=== PATIENT | female | born 1960 | race Caucasian/White ===

== ENCOUNTER → 2016-08-11 | Outpatient (CLI) | payer BC ==
[~2016-08-11] MED LIST: HORMONE REPLACEMENT; MULT-806 PO; SERT25TA PO
== END ==
LOC: WC.BC 10:03
DX: Z12.31 Encounter for screening mammogram for malignant neoplasm of breast (principal); N64.89 Other specified disorders of breast; Z98.82 Breast implant status
CPT/HCPCS: 77063; G0202

== ENCOUNTER → 2016-08-12 | Outpatient (CLI) | payer BC | LOC: IMA 15:07 | PROVIDERS: ATTEND Family Medicine | DX: R92.2 Inconclusive mammogram (principal) ==